=== PATIENT | male | born 1985 | race Two or more races ===

== ENCOUNTER 2023-10-03 22:08 | Emergency (ER) | payer OTHER ==
[~2023-10-03] VITALS: Ht 167.6 cm; Wt 57.6 kg
[2023-10-04 00:04] VITALS: BP 122/82
== END 2023-10-04 00:06 | disposition home or self-care (01) ==
LOC: ER 22:08
DX: T73.3XXA Exhaustion due to excessive exertion, initial encounter (principal); X30.XXXA Exposure to excessive natural heat, initial encounter; Y92.007 Garden or yard of unspecified non-institutional (private) residence as the place of occurrence of the external cause; Y93.89 Activity, other specified
CPT/HCPCS: 99283